=== PATIENT | female | born 1955 | race American Indian/Alaskan Native ===

== ENCOUNTER 2017-05-11 12:24 | Outpatient (CLI) | payer MEDICARE ==
--- NOTE | 2017-05-11 13:20 | XRay Report ---
XRAY RIGHT KNEE 4 THREE VIEWS: 05/11/17 CLINICAL: Knee pain. FINDINGS: Osteoarthritis with complete loss of the medial joint space and large medial osteophytes. Widening of the lateral joint space. Small lateral osteophytes. Small patellofemoral osteophytes. Quadriceps and patellar insertion enthesophytes. No joint effusion.Normal soft tissues. IMPRESSION: Osteoarthritis with greatest involvement of the medial joint. Quadriceps and patellar insertion enthesopathy.
== END 2017-05-11 12:25 | disposition home or self-care (01) ==
LOC: SPVIMAG 12:24
PROVIDERS: ATTEND Orthopaedic Surgery
DX: M17.11 Unilateral primary osteoarthritis, right knee (principal); M76.891 Other specified enthesopathies of right lower limb, excluding foot